=== PATIENT | male | born 1950 ===

== ENCOUNTER 2023-08-24 13:55 | Emergency (ER) | payer BC, MEDICARE ==
[2023-08-24] MEDS: fentaNYL 100 MCG/2 ML SDV IVPUSH ONE (14:01)
[2023-08-24] MEDS: Ondansetron 4 MG/2 ML SDV IVPUSH ONE (14:01)
[2023-08-24] MEDS: fentaNYL 100 MCG/2 ML SDV ONE (14:13)
[2023-08-24] MEDS: Ondansetron 4 MG/2 ML SDV ONE (14:13)
== END 2023-08-24 16:30 | disposition home or self-care (01) ==
LOC: DL.ED 13:55
DX: S43.004A Unspecified dislocation of right shoulder joint, initial encounter (principal); W00.0XXA Fall on same level due to ice and snow, initial encounter; Y93.89 Activity, other specified
CPT/HCPCS: 23650; 23655; 73030-RT; 73070-RT; 73110-RT; 96374; 96375; 99283; 99284-25; J2405; J3010